=== PATIENT | male | born 1955 | race African-American/Black ===

== ENCOUNTER 2017-07-07 12:30 | Observation (INO) | payer OTHER ==
[2017-07-07 15:59] LABS: BASOPHILS % (AUTO) 0.6 % (0.2-1.0); EOSINOPHILS # (AUTO) 0.1 x10^3/uL (0.0-0.2); EOSINOPHILS % (AUTO) 2.5 % (0.9-2.9); HEMATOCRIT 36.6 % (42.0-54.0); HEMOGLOBIN 12.4 g/dL (13.5-18.0); LYMPHOCYTES # (AUTO) 2.2 X10^3/uL (1.3-2.9); MEAN CORPUSCULAR HEMOGLOBIN 26.8 pg (27.0-34.0); MEAN CORPUSCULAR HGB CONC 33.9 g/dL (33.0-35.0); MEAN PLATELET VOLUME 8.8 fL (7.4-11.0); MONOCYTES # (AUTO) 0.5 x10^3/uL (0.3-0.8); MONOCYTES % (AUTO) 10.1 % (0.0-13.0); NEUTROPHILS # (AUTO) 2.5 x10^3/uL (2.2-4.8); NEUTROPHILS % (AUTO) 45.8 % (42.0-75.0); PLATELET COUNT 150 X10^3/uL (150.0-450.0); RED BLOOD COUNT 4.63 X10^6/uL (4.7-6.0); RED CELL DISTRIBUTION WIDTH 13.8 % (11.6-16.5); WHITE BLOOD COUNT 5.4 X10^3/uL (3.6-10.0)
[2017-07-07 16:05] VITALS: BMI 31.6
[2017-07-07 16:12] LABS: ALANINE AMINOTRANSFERASE 54 Units/L (12-78); ALBUMIN 3.1 g/dL (3.4-5.0); ALKALINE PHOSPHATASE 86 Units/L (46-116); ASPARTATE AMINO TRANSFERASE 30 Units/L (15-37); BLOOD UREA NITROGEN 10 mg/dL (7-18); CALCIUM 7.5 mg/dL (8.5-10.1); CARBON DIOXIDE 28.4 mmol/L (21-32); CHLORIDE 102 mmol/L (98-107); COR CA(FOR HYPOALB) 8.2 mg/dL (8.5-10.1); COR NA(FOR HYPERGLY) 138 mmol/L (136-145); CREATININE 0.89 mg/dL (0.70-1.30); SODIUM 135 mmol/L (136-145); eGFR BLACK RACES > 60 (>60); eGFR NON BLACK RACES > 60 (>60)
[2017-07-07 16:25] LABS: CKMB % 0.8 % (<4); CREATINE KINASE 502 Units/L (39-308); CREATINE KINASE MB 3.9 ng/mL (0-4.0); TROPONIN I < 0.02 ng/mL (0-1.5)
[2017-07-07] MEDS ORDERED: [UNRECOGNIZED DRUG - OTHER] PO PRN (17:06)
[2017-07-07] MEDS ORDERED: OXYCODONE HCL PO PRN (17:06)
[2017-07-07] MEDS ORDERED: ACETAMINOPHEN PO PRN (17:06)
[2017-07-07] MEDS ORDERED: TYLENOL 325 MG TAB PO PRN (17:12)
[2017-07-07] MEDS: HumuLIN R SUBCUT PRN (17:13)
[2017-07-07] MEDS: ECOTRIN TAB 325 MG PO SCH (17:14)
[2017-07-07] MEDS: LANTUS SC SCH (20:53)
[2017-07-07] MEDS: ROXICODONE TAB 5 MG PO PRN (20:54)
[2017-07-07] MEDS: LYRICA CAP 75 MG PO SCH (20:54)
--- NOTE | 2017-07-07 21:32 | RAD ---
HISTORY: Chest pain. Left arm pain and numbness. Study: Single-view chest. Comparison: None. Findings: The trachea is midline. The cardiac silhouette is at the upper limits of normal in size given the po rtable technique. The lungs are clear without focal infiltrate or effusion. The bony thorax is unre markable. IMPRESSION: No acute cardiopulmonary disease. Reported By:
[2017-07-07 22:22] LABS: CKMB % 0.7 % (<4); CREATINE KINASE 500 Units/L (39-308); CREATINE KINASE MB 3.5 ng/mL (0-4.0); TROPONIN I < 0.02 ng/mL (0-1.5)
[2017-07-07] MEDS: SNACK - Diabetic Appropriate PO SCH (22:35)
[2017-07-07] MEDS ORDERED: POTASSIUM CHL 60 MEQ/NS 0.45% 500 ML IV PRN (22:45)
[2017-07-07] MEDS ORDERED: K-RIDER 10 MEQ/NS 100 ML 10 MEQ/100 ML BAG IV PRN (22:45)
[2017-07-07] MEDS ORDERED: POTASSIUM CHL 40 MEQ/NS 0.45% 500 ML IV PRN (22:45)
[2017-07-07] MEDS ORDERED: POTASSIUM CHLORIDE LIQ 20 MEQ UDC PO PRN (22:45)
[2017-07-07] MEDS: MAGNESIUM SULFATE 1 GM/100 mL PREMIX 1 GM/100 ML BAG IV PRN (23:22)
[2017-07-07] MEDS: K-LYTE EFFERVESCENT PO PRN (23:22)
[2017-07-08] MEDS: MAGNESIUM SULFATE 1 GM/100 mL PREMIX 1 GM/100 ML BAG IV PRN (00:13)
[2017-07-08] MEDS: ROXICODONE TAB 5 MG PO PRN ×4 (02:56→21:55)
[2017-07-08 06:37] LABS: BASOPHILS % (AUTO) 0.8 % (0.2-1.0); EOSINOPHILS # (AUTO) 0.2 x10^3/uL (0.0-0.2); EOSINOPHILS % (AUTO) 3.1 % (0.9-2.9); HEMATOCRIT 37.4 % (42.0-54.0); HEMOGLOBIN 12.8 g/dL (13.5-18.0); LYMPHOCYTES # (AUTO) 2.4 X10^3/uL (1.3-2.9); LYMPHOCYTES % (AUTO) 47.9 % (21.0-51.0); MEAN CORPUSCULAR HEMOGLOBIN 27.2 pg (27.0-34.0); MEAN CORPUSCULAR HGB CONC 34.3 g/dL (33.0-35.0); MEAN CORPUSCULAR VOLUME 79.1 fL (80.0-100.0); MEAN PLATELET VOLUME 8.8 fL (7.4-11.0); MONOCYTES # (AUTO) 0.5 x10^3/uL (0.3-0.8); MONOCYTES % (AUTO) 10.8 % (0.0-13.0); NEUTROPHILS # (AUTO) 1.9 x10^3/uL (2.2-4.8); NEUTROPHILS % (AUTO) 37.4 % (42.0-75.0); PLATELET COUNT 146 X10^3/uL (150.0-450.0); RED BLOOD COUNT 4.72 X10^6/uL (4.7-6.0); RED CELL DISTRIBUTION WIDTH 13.6 % (11.6-16.5)
[2017-07-08 07:01] LABS: ALANINE AMINOTRANSFERASE 57 Units/L (12-78); ALKALINE PHOSPHATASE 82 Units/L (46-116); ASPARTATE AMINO TRANSFERASE 26 Units/L (15-37); BLOOD UREA NITROGEN 9 mg/dL (7-18); CALCIUM 7.6 mg/dL (8.5-10.1); CARBON DIOXIDE 28.2 mmol/L (21-32); CHLORIDE 104 mmol/L (98-107); CHOL/HDL RATIO 2.8 (0.0-5.0); CHOLESTEROL 131 mg/dL (0-200); CKMB % 0.7 % (<4); COR CA(FOR HYPOALB) 8.4 mg/dL (8.5-10.1); CREATINE KINASE 419 Units/L (39-308); CREATINE KINASE MB 2.9 ng/mL (0-4.0); CREATININE 0.77 mg/dL (0.70-1.30); HDL CHOLESTEROL 46 mg/dL (40-60); SODIUM 138 mmol/L (136-145); TOTAL PROTEIN 6.8 g/dL (6.4-8.2); TRIGLYCERIDES 49 mg/dL (0-150); TROPONIN I < 0.02 ng/mL (0-1.5); eGFR BLACK RACES > 60 (>60); eGFR NON BLACK RACES > 60 (>60)
[2017-07-08] MEDS: FLOMAX PO SCH (08:17)
[2017-07-08] MEDS: LYRICA CAP 75 MG PO SCH ×2 (08:17→21:56)
[2017-07-08] MEDS: ECOTRIN TAB 325 MG PO SCH (08:17)
[2017-07-08] MEDS: LOTENSIN TAB 10 MG PO SCH (08:17)
[2017-07-08] MEDS: K-LYTE EFFERVESCENT PO PRN (08:59)
--- NOTE | 2017-07-08 14:08 | DR.UPDATE ---
H&P Update History and Physical Update: WAS SEEN IN THE OFFICE YESTERDAY. A H&P WAS COMPLETED PRIOR TO ADMISSION. PATIENT HAS BEEN SEEN AND EXAMINED WITH NO CHANGES NOTED TO H&P. Changes noted: NO Yes with the following:
[2017-07-08] MEDS: HumuLIN R SUBCUT PRN (16:11)
--- NOTE | 2017-07-08 20:56 | PCM.PROG ---
Progress Note - Progress Note for Day of Date: 07/08/17 - Subjective Subjective: WAS ADMITTED FOR CHEST PAIN, RULE OUT MYOCARDIAL INFARCTION. TODAY, HE IS ALERT AND ORIENTED, LYING IN BED ON MORNING ROUNDS. HE CONTINUES WITH INTERMITTENT CHEST PAIN AND LEFT ARM NUMBNESS. ON EXAMINATION, HEART IS REGULAR IN RATE AND RHYTHM. ILATERAL LUNGS ARE NOTED WITH DIMINISHED LUNG SOUNDS THROUGHOUT. ABDOMEN IS ROUND, SOFT, AND NON-TENDER WITH NORMAL BOWEL SOUNDS NOTED IN ALL QUADRANTS. HIS VITALS TODAY ARE 97.3-54-13-100%-171/ 79. ABNORMAL LAB VALUES INCLUDE THE FOLLOWING: HGB 12.8, HCT 37.4, PLT COUNT 146 , CALCIUM 7.6, CREATINE KINASE 419, ALBUMIN 3.0. OTHERWISE, CARDIAC ENZYMES ARE WITHIN NORMAL LIMITS. MOST RECENT EKG REVEALS NORMAL SINUS RHYTHM WITH HR 60. TODAY, WE WILL OBTAIN AN ECHOCARDIOGRAM AND A CAROTIC DOPPLER. OTHERWISE, WE WILL CONTINUE TO MONITOR PATIENT ON TELEMETRY AND FOLLOW UP WITH AM LABS. - Past Medical Family Social History Past Med/Fam/Surg Hx: No changes since H&P Allergies: Allergies No Known Drug Allergies Allergy (Verified 07/07/17 15:35) - Review of Systems ROS: No change since H&P - Vital Signs and I&O's Vital Signs: Temperature 97.6 F Pulse Rate [Apical] 57 Respiratory Rate 12 Blood Pressure [Left Arm] 177/83 O2 Sat by Pulse Oximetry 100 Intake and Output: Intake & Output 07/06/17 07/07/17 07/08/17 07/09/17 11:59 11:59 11:59 11:59 Intake Total 1368 1630 Output Total 1300 Balance 68 1630 - Physical Exam Oriented: Normal Eyes: Normal Ear: Normal Nose: Normal Throat: Normal Respiratory: Generalized, Diminished Cardiovascular: Normal : Normal Auscultation: Bowel Sounds: Normal Palpation: Normal Tenderness: Normal Skin: Normal Musculoskeletal: Normal Psychiatric: Normal Mood Description: Calm Affect: Normal Speech Pattern: Clear, Appropriate - Laboratory and Diagnostics Result Diagrams: 07/08/17 06:18 07/08/17 06:18 Labs: Laboratory WBC 5.0 X10^3/uL (3.6-10.0) 07/08/17 06:18 RBC 4.72 X10^6/uL (4.7-6.0) 07/08/17 06:18 Hgb 12.8 g/dL (13.5-18.0) L 07/08/17 06:18 Hct 37.4 % (42.0-54.0) L 07/08/17 06:18 MCV 79.1 fL (80.0-100.0) L 07/08/17 06:18 MCH 27.2 pg (27.0-34.0) 07/08/17 06:18 MCHC 34.3 g/dL (33.0-35.0) 07/08/17 06:18 RDW 13.6 % (11.6-16.5) 07/08/17 06:18 Plt Count 146 X10^3/uL (150.0-450.0) L 07/08/17 06:18 MPV 8.8 fL (7.4-11.0) 07/08/17 06:18 Neut % (Auto) 37.4 % (42.0-75.0) L 07/08/17 06:18 Lymph % (Auto) 47.9 % (21.0-51.0) 07/08/17 06:18 [place] % (Auto) 10.8 % (0.0-13.0) 07/08/17 06:18 Eos % (Auto) 3.1 % (0.9-2.9) H 07/08/17:18 Baso % (Auto) 0.8 % (0.2-1.0) 07/08/17 06:18 Neut # (Auto) 1.9 x10^3/uL (2.2-4.8) L 07/08/17 06:18 Lymph # (Auto) 2.4 X10^3/uL (1.3-2.9) 07/08/17 06:18 [place] # (Auto) 0.5 x10^3/uL (0.3-0.8) 07/08/17 06:18 Eos # (Auto) 0.2 x10^3/uL (0.0-0.2) 07/08/17 06:18 Baso # (Auto) 0.0 X10^3/uL (0.0-0.1) 07/08/17 06:18 Absolute Nucleated RBC 0.1 /100WBC 07/08/17 06:18 INR Target Range - 07/07/17 15:45 INR 1.09 (0.8-1.3) 07/07/17 15:45 APTT 40.1 SECONDS (22.9-36.5) H 07/07/17 15:45 PTT Comment - 07/07/17 15:45 Sodium 138 mmol/L (136-145) 07/08/17 06:18 Corrected Sodium TNP 07/08/17 06:18 Potassium 3.7 mmol/L (3.5-5.1) 07/08/17 06:18 Chloride 104 mmol/L (98-107) 07/08/17 06:18 Carbon Dioxide 28.2 mmol/L (21-32) 07/08/17 06:18 BUN 9 mg/dL (7-18) 07/08/17 06:18 Creatinine 0.77 mg/dL (0.70-1.30) 07/08/17 06:18 Est GFR (MDRD) Af Amer > 60 (>60) 07/08/17 06:18 Est GFR (MDRD) Non-Af > 60 (>60) 07/08/17 06:18 Glucose 92 mg/dL (65-99) 07/08/17 06:18 POC Glucose (mg/dL) 268 mg/dL (65-99) H 07/08/17 16:02 Calcium 7.6 mg/dL (8.5-10.1) L 07/08/17 06:18 Corrected Calcium 8.4 mg/dL (8.5-10.1) L 07/08/17 06:18 Magnesium 2.0 mg/dL (1.7-2.9) 07/08/17 06:18 Total Bilirubin 0.40 mg/dL (0.2-1.0) 07/08/17 06:18 AST 26 Units/L (15-37) 07/08/17 06:18 ALT 57 Units/L (12-78) 07/08/17 06:18 Alkaline Phosphatase 82 Units/L (46-116) 07/08/17 06:18 Creatine Kinase 419 Units/L (39-308) H 07/08/17 06:18 CK-MB (CK-2) 2.9 ng/mL (0-4.0) 07/08/17 06:18 CK/CKMB % Calc 0.7 % (<4) 07/08/17 06:18 Troponin I < 0.02 ng/mL (0-1.5) 07/08/17 06:18 Total Protein 6.8 g/dL (6.4-8.2) 07/08/17 06:18 Albumin 3.0 g/dL (3.4-5.0) L 07/08/17 06:18 Globulin 3.8 g/dL (2.5-4.5) 07/08/17 06:18 Albumin/Globulin Ratio 0.8 Ratio (1.1-2.1) L 07/08/17 06:18 Triglycerides 49 mg/dL (0-150) 07/08/17 06:18 Cholesterol 131 mg/dL (0-200) 07/08/17 06:18 LDL Cholesterol, Calc 75 mg/dL (0-100) 07/08/17 06:18 HDL Cholesterol 46 mg/dL (40-60) 07/08/17 06:18 Cholesterol/HDL Ratio 2.8 (0.0-5.0) 07/08/17 06:18 - Plan (1) Chest pain, rule out acute myocardial infarction Status: Acute Plan: TELEMETRY, OBTAIN CAROTID DOPPLER, OBTAIN ECHO, SUPPLEMENTAL OXYGEN, CONTINUE TO MONITOR
[2017-07-08] MEDS: SNACK - Diabetic Appropriate PO SCH (21:00)
[2017-07-08] MEDS: LANTUS SC SCH (21:56)
[2017-07-09] MEDS: ROXICODONE TAB 5 MG PO PRN (05:15)
[2017-07-09 05:34] LABS: BASOPHILS % (AUTO) 0.4 % (0.2-1.0); EOSINOPHILS # (AUTO) 0.2 x10^3/uL (0.0-0.2); EOSINOPHILS % (AUTO) 2.6 % (0.9-2.9); HEMATOCRIT 38.7 % (42.0-54.0); HEMOGLOBIN 13.1 g/dL (13.5-18.0); LYMPHOCYTES # (AUTO) 2.6 X10^3/uL (1.3-2.9); LYMPHOCYTES % (AUTO) 40.9 % (21.0-51.0); MEAN CORPUSCULAR HGB CONC 33.9 g/dL (33.0-35.0); MEAN CORPUSCULAR VOLUME 79.7 fL (80.0-100.0); MEAN PLATELET VOLUME 9.4 fL (7.4-11.0); MONOCYTES # (AUTO) 0.7 x10^3/uL (0.3-0.8); MONOCYTES % (AUTO) 11.2 % (0.0-13.0); NEUTROPHILS # (AUTO) 2.8 x10^3/uL (2.2-4.8); NEUTROPHILS % (AUTO) 44.9 % (42.0-75.0); PLATELET COUNT 144 X10^3/uL (150.0-450.0); RED BLOOD COUNT 4.86 X10^6/uL (4.7-6.0); RED CELL DISTRIBUTION WIDTH 13.6 % (11.6-16.5); WHITE BLOOD COUNT 6.3 X10^3/uL (3.6-10.0)
[2017-07-09] MEDS: HumuLIN R SUBCUT PRN (05:40)
[2017-07-09 05:41] LABS: ALANINE AMINOTRANSFERASE 58 Units/L (12-78); ALBUMIN 3.1 g/dL (3.4-5.0); ALKALINE PHOSPHATASE 84 Units/L (46-116); ASPARTATE AMINO TRANSFERASE 28 Units/L (15-37); BLOOD UREA NITROGEN 10 mg/dL (7-18); CALCIUM 8.1 mg/dL (8.5-10.1); CHLORIDE 100 mmol/L (98-107); COR CA(FOR HYPOALB) 8.8 mg/dL (8.5-10.1); COR NA(FOR HYPERGLY) 137 mmol/L (136-145); CREATININE 0.88 mg/dL (0.70-1.30); SODIUM 134 mmol/L (136-145); eGFR BLACK RACES > 60 (>60); eGFR NON BLACK RACES > 60 (>60)
[2017-07-09] MEDS: FLOMAX PO SCH (08:10)
[2017-07-09] MEDS: ECOTRIN TAB 325 MG PO SCH (08:10)
[2017-07-09] MEDS: LOTENSIN TAB 10 MG PO SCH (08:10)
[2017-07-09] MEDS: LYRICA CAP 75 MG PO SCH (08:10)
--- NOTE | 2017-07-09 10:45 | VAS ---
HISTORY: Chest pain, left arm tingling, and shortness of breath. Study: Carotid ultrasound. Comparison: None. Technique: Multiple puga scale and color flow Doppler images of the right and left carotid arterial s ystem were obtained. The vertebral arterial system was evaluated as well. Findings: Normal color flow Doppler is seen throughout the right and left carotid arterial system. Maximum inte rnal carotid artery velocity of 98 centimeters/second on the right and maximum internal carotid arter y velocity on the left of 96 centimeters/second. Right ICA/CCA ratio of 1.2 and left ICA/CCA ratio 1. 0. Scattered calcific and soft plaque. No hemodynamically significant stenosis is seen based on [facility] criteria. The right and left vertebral arteries demonstrate antegrade flow. IMPRESSION: Less than 50% stenosis of the bilateral internal carotid arteries. Reported By:
[2017-07-09 12:29] VITALS: BP 136/77
== END 2017-07-09 13:44 | disposition home or self-care (01) ==
LOC: MED/SURG 12:30 → UNDOADMOB 12:30 → ICU 12:46 → MED/SURG 12:46 → ICU 14:21
PROVIDERS: ADMIT Internal Medicine; ATTEND Internal Medicine
DX: R07.89 Other chest pain (principal); R20.0 Anesthesia of skin; E11.65 Type 2 diabetes mellitus with hyperglycemia; Z79.4 Long term (current) use of insulin; R94.31 Abnormal electrocardiogram [ECG] [EKG]; Z79.1 Long term (current) use of non-steroidal anti-inflammatories (NSAID); Z79.899 Other long term (current) drug therapy
CPT/HCPCS: 36415; 71045; 80053; 80061; 82550; 82553; 83735; 84484; 85025; 85610; 85730; 93005; 93880; A4216; A4222; G0378; J1815